=== PATIENT | female | born 1960 | race Caucasian/White ===

== ENCOUNTER → 2017-11-02 | Outpatient (CLI) | payer OTHER | END | disposition home or self-care (01) | LOC: MAMMO 09:24 | DX: N63.20 Unspecified lump in the left breast, unspecified quadrant (principal); Z85.3 Personal history of malignant neoplasm of breast | CPT/HCPCS: 76641; 77066 ==

== ENCOUNTER → 2017-11-19 | Outpatient (CLI) | payer OTHER ==
[~2017-11-19] MED LIST: LIDOCAINE 2%/EPI 1:100,000 20 ML VIAL. IJ
[2017-11-19] MEDS: LIDOCAINE WITH 8.4% SOD BICARB 3 ML DISP.SYRIN. INJ ×2 (08:45→09:57)
[2017-11-19] MEDS: LIDOCAINE 2%/EPI 1:100,000 20 ML VIAL. IJ (08:45)
== END | disposition home or self-care (01) ==
LOC: MAMMO 07:54
DX: N63.11 Unspecified lump in the right breast, upper outer quadrant (principal)
CPT/HCPCS: 19081; 19083; 19085; 76942; 77022; 77065; C1713; J3490

== ENCOUNTER → 2018-01-25 | Day surgery (SDC) | payer OTHER ==
[~2018-01-25] MED LIST changes: -LIDOCAINE 2%/EPI 1:100,000 20 ML VIAL. IJ; +PROPOFOL 20 ML IV
[2018-01-25] MEDS: IV RINGERS,LACTATED 1000ML 1,000 ML IV (15:20)
== END | disposition home or self-care (01) ==
LOC: ENDOS 14:54
DX: Z12.11 Encounter for screening for malignant neoplasm of colon (principal); D12.4 Benign neoplasm of descending colon; K57.30 Diverticulosis of large intestine without perforation or abscess without bleeding; K64.0 First degree hemorrhoids; Z80.0 Family history of malignant neoplasm of digestive organs; I10 Essential (primary) hypertension; Z85.3 Personal history of malignant neoplasm of breast; Z87.891 Personal history of nicotine dependence; Z72.89 Other problems related to lifestyle; Z90.710 Acquired absence of both cervix and uterus
CPT/HCPCS: 45380; 45385; 88305; J2704

== ENCOUNTER 2018-02-04 08:28 | Outpatient (CLI) | payer OTHER ==
[2018-02-04 09:11] LABS: ADD MAN DIFF? NO
[2018-02-04 09:16] LABS: BASO # 0.1 x10^3/uL (0.0-0.2); BASO % 1 % (0-3); EOS # 0.3 x10^3/uL (0.0-0.7); EOS % 4 % (0-3); HEMATOCRIT 42.1 % (36.0-47.0); HEMOGLOBIN 14.3 g/dL (12.0-15.5); LYMPH # 2.7 x10^3/uL (1.0-4.8); LYMPH % 34 % (24-48); MEAN CORPUSCULAR HEMOGLOBIN 32 pg (25-35); MEAN CORPUSCULAR HGB CONC 34 g/dL (31-37); MEAN CORPUSCULAR VOLUME 96 fL (79-100); MONO # 1.1 x10^3/uL (0.0-1.1); MONO % 13 % (0-9); NEUT # 3.9 x10^3uL (1.8-7.7); NEUT % 48 % (31-73); PLATELET COUNT 333 x10^3/uL (140-400); RED CELL DISTRIBUTION WIDTH 13.6 % (11.5-14.5); WHITE BLOOD COUNT 8.1 x10^3/uL (4.0-11.0)
[2018-02-04] MEDS ORDERED: fentaNYL PF VIAL 100 MCG/2 ML VIAL (09:17)
[2018-02-04] MEDS ORDERED: MIDAZOLAM HCL/PF 5 MG/5 ML VIAL. (09:17)
[2018-02-04 09:26] LABS: INR 1.1 (0.8-1.1); PARTIAL THROMBOPLASTIN TIME 29 SEC (24-38); PROTHROMBIN TIME PATIENT 13.2 SEC (11.7-14.0)
[2018-02-04] MEDS ORDERED: LIDOCAINE 2%/EPI 1:100,000 20 ML VIAL. (09:38)
[2018-02-04] MEDS: MIDAZOLAM HCL/PF 5 MG/5 ML VIAL. IV (10:30)
[2018-02-04] MEDS: LIDOCAINE 2%/EPI 1:100,000 20 ML VIAL. IJ (10:31)
[2018-02-04] MEDS: fentaNYL PF VIAL 100 MCG/2 ML VIAL IV (10:31)
== END 2018-02-04 11:50 | disposition home or self-care (01) ==
LOC: INTRAD 08:28
DX: Z45.2 Encounter for adjustment and management of vascular access device (principal); C50.912 Malignant neoplasm of unspecified site of left female breast; Z88.6 Allergy status to analgesic agent; Z86.73 Personal history of transient ischemic attack (TIA), and cerebral infarction without residual deficits; I10 Essential (primary) hypertension; K21.9 Gastro-esophageal reflux disease without esophagitis; Z90.13 Acquired absence of bilateral breasts and nipples; Z90.710 Acquired absence of both cervix and uterus; M19.012 Primary osteoarthritis, left shoulder; F32.9 Major depressive disorder, single episode, unspecified; F41.9 Anxiety disorder, unspecified; Z72.89 Other problems related to lifestyle; F17.200 Nicotine dependence, unspecified, uncomplicated; K08.409 Partial loss of teeth, unspecified cause, unspecified class; Z80.3 Family history of malignant neoplasm of breast; Z79.01 Long term (current) use of anticoagulants
CPT/HCPCS: 36415; 36561; 76937; 77001; 85025; 85610; 85730; 99152; 99153; C1751; C1769; C1892; J0690; J2250; J3010; J3490

== ENCOUNTER → 2018-02-08 | Outpatient (CLI) | payer OTHER | END | disposition home or self-care (01) | LOC: US 07:10 | DX: C50.412 Malignant neoplasm of upper-outer quadrant of left female breast (principal); N28.1 Cyst of kidney, acquired; K82.4 Cholesterolosis of gallbladder; I10 Essential (primary) hypertension; J44.1 Chronic obstructive pulmonary disease with (acute) exacerbation; K21.9 Gastro-esophageal reflux disease without esophagitis | CPT/HCPCS: 76700 ==

== ENCOUNTER → 2018-02-08 | Outpatient (CLI) | payer OTHER | END | disposition home or self-care (01) | LOC: ECHO 07:07 | DX: C50.412 Malignant neoplasm of upper-outer quadrant of left female breast (principal); Z51.11 Encounter for antineoplastic chemotherapy (principal); I10 Essential (primary) hypertension; J44.1 Chronic obstructive pulmonary disease with (acute) exacerbation; K21.9 Gastro-esophageal reflux disease without esophagitis; Z17.1 Estrogen receptor negative status [ER-]; Z90.13 Acquired absence of bilateral breasts and nipples | CPT/HCPCS: 93306 ==

== ENCOUNTER 2018-05-23 19:28 | Inpatient (IN) | payer OTHER ==
[~2018-05-23] VITALS: Ht 152.4 cm; Wt 54.5 kg
[~2018-05-23 19:28] MED LIST changes: +FAMO20TA80 PO; +HYDR2TAB PO; +LISI1TAB5 PO; -PROPOFOL 20 ML IV; +RANI150T21 PO; +SULF1TAB24 PO
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
[2018-05-23 21:42] LABS: BILIRUBIN,URINE NEGATIVE (NEG); CLARITY,URINE CLEAR; COLOR,URINE YELLOW; NITRITE,URINE NEGATIVE (NEG); PROTEIN,URINE NEGATIVE (NEG-TRACE); UROBILINOGEN,URINE 0.2 mg/dL (0.2 mg/dL)
[2018-05-23] MEDS ORDERED: IV NORMAL SALINE 1000ML BAG 1,000 ML IV SCH (21:45)
[2018-05-23 21:52] LABS: BACTERIA,URINE FEW /HPF (0-FEW); HYALINE CASTS, URINE MANY /HPF; RBC,URINE OCC /HPF (0-2); SQUAMOUS EPITHELIAL CELL,UR FEW /LPF
[2018-05-23 22:13] LABS: FECAL OB PT NEGATIVE (NEG)
[2018-05-23 22:34] LABS: BASO % 1 % (0-3); EOS # 0.1 x10^3/uL (0.0-0.7); EOS % 1 % (0-3); HEMATOCRIT 34.7 % (36.0-47.0); HEMOGLOBIN 12.4 g/dL (12.0-15.5); LYMPH # 0.9 x10^3/uL (1.0-4.8); LYMPH % 15 % (24-48); MEAN CORPUSCULAR HEMOGLOBIN 35 pg (25-35); MEAN CORPUSCULAR HGB CONC 36 g/dL (31-37); MEAN CORPUSCULAR VOLUME 98 fL (79-100); MONO # 0.3 x10^3/uL (0.0-1.1); MONO % 5 % (0-9); NEUT # 4.7 x10^3uL (1.8-7.7); NEUT % 78 % (31-73); PLATELET COUNT 341 x10^3/uL (140-400); RED BLOOD COUNT 3.55 x10^6/uL (3.50-5.40); RED CELL DISTRIBUTION WIDTH 14.3 % (11.5-14.5); WHITE BLOOD COUNT 6.1 x10^3/uL (4.0-11.0)
[2018-05-23 22:41] LABS: PROTHROMBIN TIME PATIENT 12.8 SEC (11.7-14.0)
[2018-05-23 22:43] LABS: CALCIUM 8.7 mg/dL (8.5-10.1); CREATININE 3.7 mg/dL (0.6-1.0); GFR 12.5; POTASSIUM 3.2 mmol/L (3.5-5.1)
[2018-05-23 22:50] LABS: ALBUMIN 3.5 g/dL (3.4-5.0); ALBUMIN/GLOBULIN RATIO 1.1 (1.0-1.7); TOTAL BILIRUBIN 0.2 mg/dL (0.2-1.0); TOTAL PROTEIN 6.8 g/dL (6.4-8.2)
[2018-05-23] MEDS ORDERED: FAMOTIDINE 20 MG/2 ML VIAL IVP ONE (23:00)
[2018-05-23] MEDS ORDERED: IV NORMAL SALINE 1000ML BAG 1,000 ML IV ONE (23:15)
[2018-05-23] MEDS ORDERED: ONDANSETRON PF 4 MG/2 ML VIAL. IV PRN (23:15)
[2018-05-23] MEDS: MORPHINE SULFATE 2 MG/ML VIAL. IV PRN (23:36)
[2018-05-24 00:38] VITALS: BP 112/55
[2018-05-24] MEDS ORDERED: DRON5CAP2 PO (00:52)
[2018-05-24] MEDS ORDERED: ONDA8TAB14 PO (00:52)
[2018-05-24] MEDS ORDERED: LISI1TAB5 PO (00:52)
[2018-05-24] MEDS ORDERED: PROC10TA2 PO (00:52)
[2018-05-24] MEDS ORDERED: TRAZ-85 PO (00:52)
[2018-05-24] MEDS ORDERED: TRAM50TA PO (00:52)
[2018-05-24] MEDS ORDERED: DIPH25CA58 PO (00:52)
[2018-05-24] MEDS: MORPHINE SULFATE 2 MG/ML VIAL. IV PRN ×3 (02:33→07:28)
[2018-05-24 03:01] VITALS: BP 91/42
[2018-05-24 07:20] VITALS: BP 119/87
[2018-05-24] MEDS ORDERED: diphenhydrAMINE HCL 25 MG CAPSULE PO PRN (07:45)
[2018-05-24] MEDS: FAMOTIDINE 20 MG TABLET. PO SCH (08:31)
--- NOTE | 2018-05-24 08:40 | PDOC ---
Provider Note Provider Note [phone] [id number] SUNITA SOTO MD May 24, 2018 08:40
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
[2018-05-24] MEDS: ONDANSETRON ODT 4 MG TAB.RAPDIS. PO PRN ×2 (08:47→18:12)
[2018-05-24] MEDS: traMADol 50 MG TABLET PO PRN ×3 (08:49→21:25)
[2018-05-24] MEDS: POTASSIUM CL 20MEQ D5-0.9%NACL 1,000 ML IV SCH ×3 (08:51→23:05)
[2018-05-24] MEDS ORDERED: hydroCHLOROthiazide 12.5 MG CAPSULE PO SCH (09:00)
[2018-05-24] MEDS ORDERED: LISINOPRIL 20 MG TABLET PO SCH (09:00)
--- NOTE | 2018-05-24 09:14 | HP ---
ADMIT DATE: 05/23/2018 CHIEF COMPLAINT: Nausea, vomiting, weakness. HISTORY OF PRESENT ILLNESS: A 57-year-old white female who has been seen by me for hypertension and has been on chemotherapy per the direction of Dr. Suzie Uriostegui since December of this year. She recently developed nausea and vomiting, 1 day of bloody diarrhea but the bloody diarrhea has since stopped. The ER evaluation showed acute renal failure as her baseline creatinine was around 1. I last saw the patient about 2 months ago at which time her blood pressure was too low and her lisinopril was stopped, but she has since resumed it and she is not completely sure why, but was told "to resume it." PAST MEDICAL HISTORY: Bilateral mastectomies. ALLERGIES: SHE IS ALLERGIC TO CODEINE AND HYDROCODONE, SHE IS A RECOVERING DRUG ADDICT. NO OTHER SERIOUS MEDICAL PROBLEMS. MEDICATIONS: She takes only Pepcid as a regular medication. FAMILY HISTORY: Unremarkable. SOCIAL HISTORY: Nonsmoker, nondrinker. REVIEW OF SYSTEMS: No other complaints. OBJECTIVE: ENT: Mucosa mildly dry, otherwise unremarkable. She has alopecia from chemotherapy. NECK: No carotid bruits, nodes or masses. LUNGS: Clear. CARDIOVASCULAR: Regular rate. No murmur. ABDOMEN: Soft, benign and nontender. BACK: No flank tenderness. EXTREMITIES: Decreased pedal pulses and skin turgor. No joint or skin lesions or neurologic findings. ASSESSMENT: Acute renal failure, likely secondary to gastrointestinal fluid loss from chemotherapy side effects. Overtreated hypertension with lisinopril may be a component to this as well. PLAN: We will again hold lisinopril, continue isotonic fluid resuscitation and follow renal function accordingly to assess recovery. SUNITA SOTO MD DR: AVIS/kinjal JOB#: [id number] / [id number]
[2018-05-24 14:50] VITALS: BP 101/46
[2018-05-24] MEDS ORDERED: FAMOTIDINE 20 MG TABLET. PO SCH (17:45)
[2018-05-24] MEDS ORDERED: FAMOTIDINE 20 MG TABLET. PO ONE (18:15)
[2018-05-24 19:00] VITALS: BP 140/64
[2018-05-24 21:22] LABS: CALCIUM 8.3 mg/dL (8.5-10.1); CREATININE 0.7 mg/dL (0.6-1.0); GFR 85.6; POTASSIUM 3.8 mmol/L (3.5-5.1)
[2018-05-24 23:00] VITALS: BP 118/61
[2018-05-25 03:20] VITALS: BP 136/75
[2018-05-25] MEDS: traMADol 50 MG TABLET PO PRN (03:49)
[2018-05-25] MEDS: POTASSIUM CL 20MEQ D5-0.9%NACL 1,000 ML IV SCH (03:51)
[2018-05-25 07:00] VITALS: BP 139/75
[2018-05-25 07:00] LABS: CALCIUM 8.2 mg/dL (8.5-10.1); CREATININE 0.6 mg/dL (0.6-1.0); GFR 102.3; POTASSIUM 3.6 mmol/L (3.5-5.1)
--- NOTE | 2018-05-25 08:10 | DISCH ---
DISCHARGE INSTRUCTIONS Condition on Discharge Condition on Discharge: Stable Activity After Discharge Activity Instructions for Disc: No restrictions, Bedrest today Lifting Instructions after Dis: No heavy lifting Driving Instructions after Dis: Do not drive Weight Bearing Status after Di: As tolerated Diet after Discharge Diet after Discharge: No Added Salt, Regular Wound Incision Care Wound/Incision Care: Keep wound/cast CDI Follow-Up Follow up with: dr robinson Blandon d Treatment/Equipment after DC Adaptive Equipment Issued: None SUNITA SOTO MD May 25, 2018 08:10
--- NOTE | 2018-05-25 08:10 | PDOC ---
Provider Note Provider Note [id number] SUNITA SOTO MD May 25, 2018 08:10
--- NOTE | 2018-05-25 08:28 | DS ---
DATE OF DISCHARGE: 05/25/2018 HOSPITAL SUMMARY: A 57-year-old white female came in with persistent nausea and vomiting for several days while undergoing chemotherapy for breast cancer. She had been taken off lisinopril HCT 3 months ago for hypertension due to lack of need, but had been recently taking it again in error. BUN was 55, creatinine 3.7 on admission and these came down to normal within 24 hours and remained so. Vital signs are good. Blood pressure is not high and she is eating and drinking well and comfortable to be discharged and followed as an outpatient at this point. FINAL DIAGNOSES: 1. Acute renal failure, resolved, likely secondary to vasomotor nephropathy. 2. Chemotherapy-induced nausea and vomiting. OPERATIONS, PROCEDURES, COMPLICATIONS: None. CONSULTATIONS: Dr. Suzie Uriostegui. DISPOSITION: She will remain off lisinopril HCT, to follow up in the office in 2 days. We will inject her left shoulder regarding arthritis at that time. FOLLOWUP: Regular follow up with her Oncology appointments, vigorous fluid intake. PROGNOSIS: Guarded. SUNITA SOTO MD DR: AVIS/kinjal JOB#: [id number] / [id number]
--- NOTE | 2018-05-25 08:38 | PDOC ---
SUBJECTIVE Subjective S: Feeling much better, renal function back to normal, would like to go home, she did have one bowel movement last night but it is forming, stool studies not resulted at this time O: Physical exam: Gen.: Thin, bald, resting in bed Lungs: Breathing comfortably with no evidence of respiratory distress Psychiatric: Pleasant mood and affect Labs: Creatinine 0.6 Assessment and Plan: She is a 57-year-old female with recurrent breast cancer recently noted October 2017 triple negative early stage on adjuvant chemotherapy with weekly paclitaxel due for her seventh week of 12 on , this is currently being held. Admitted with nausea vomiting diarrhea and acute renal failure likely secondary to volume depletion. Rapid improvement with volume and stopping lisinopril. Diarrhea: No pain, stools forming, improving, suspect due to chemotherapy, stool studies not resulted at this time but low suspicion for infectious diarrhea due to her improvement Nausea and vomiting: May use antiemetics as needed Acute renal failure: Resolved with hydration, will continue to hold lisinopril Breast cancer: Chemotherapy this week has been canceled though she will likely resume with week 8 of paclitaxel next week and follow-up with nurse practitioner Ms Walter as I will be out Disposition: Likely today Thank you kindly for this consultation, and please do not hesitate to call with further questions. OBJECTIVE Vital Signs Vital Signs Date Time Temp Pulse Resp B/P (MAP) Pulse Ox O2 Delivery O2 Flow Rate FiO2 05/25/18 07:00 98.1 71 20 139/75 (96) 94 Room Air 98.1 05/25/18 03:20 97.9 74 20 136/75 (95) 94 Room Air 97.9 05/24/18 23:00 98.1 73 18 118/61 (80) 96 Room Air 98.1 05/24/18 19:00 98.4 78 16 140/64 (89) 95 Room Air 98.4 05/24/18 15:53 Room Air 05/24/18 14:53 Room Air 05/24/18 14:50 98.1 77 17 101/46 (64) 96 Room Air 98.1 I & O Intake and Output 05/25/18 07:00 Intake Total 1980 ml Output Total 4 ml Balance 1976 ml Intake Oral 1980 ml Output Urine Total 4 ml # Bowel Movements 1 COMMENT Lab Laboratory Tests Test 05/24/18 21:00 05/25/18 06:15 Sodium Level 141 mmol/L (136-145) 141 mmol/L (136-145) Potassium Level 3.8 mmol/L (3.5-5.1) 3.6 mmol/L (3.5-5.1) Chloride Level 107 mmol/L (98-107) 106 mmol/L (98-107) Carbon Dioxide Level 30 mmol/L (21-32) 30 mmol/L (21-32) Anion Gap 4 (6-14) 5 (6-14) Blood Urea Nitrogen 20 mg/dL (7-20) 12 mg/dL (7-20) Creatinine 0.7 mg/dL (0.6-1.0) 0.6 mg/dL (0.6-1.0) Estimated GFR (Cockcroft-Gault) 85.6 102.3 Glucose Level 97 mg/dL (70-99) 103 mg/dL (70-99) Calcium Level 8.3 mg/dL (8.5-10.1) 8.2 mg/dL (8.5-10.1) Nutrition Consultation Dietary Evaluation: Recommendations by RD: Increase Calorie Intake, Protein supplementation Comments: diet changed to renal - monitor labs offer nepro supplements prn Expected Outcomes/Goals: to meet > 75% est nutr needs Malnutrition Findings: Food and Nutrition Intake (Mod: <75% est energy req 7days Weight Status: Appropriate GABRIELA BIRD MD May 25, 2018 08:38
[2018-05-25] MEDS: FAMOTIDINE 20 MG TABLET. PO SCH (09:00)
[2018-05-25] MEDS ORDERED: FAMOTIDINE 20 MG TABLET. PO SCH (09:00)
== END 2018-05-25 10:44 | disposition home or self-care (01) | DRG 640 ==
LOC: ER 19:28 → 5 SOUTH 23:05
PROVIDERS: ADMIT Family Medicine; ATTEND Family Medicine
DX: E87.6 Hypokalemia (principal); N17.0 Acute kidney failure with tubular necrosis; I10 Essential (primary) hypertension; C50.919 Malignant neoplasm of unspecified site of unspecified female breast; T45.1X5A Adverse effect of antineoplastic and immunosuppressive drugs, initial encounter; R11.2 Nausea with vomiting, unspecified; R19.7 Diarrhea, unspecified; Z17.1 Estrogen receptor negative status [ER-]; Z90.13 Acquired absence of bilateral breasts and nipples; Z88.6 Allergy status to analgesic agent; Z88.8 Allergy status to other drugs, medicaments and biological substances; Z90.710 Acquired absence of both cervix and uterus; Z80.0 Family history of malignant neoplasm of digestive organs; Z80.1 Family history of malignant neoplasm of trachea, bronchus and lung
CPT/HCPCS: 36415; 80048; 80053; 81001; 82274; 83690; 85025; 85610; 85730; 87045; 87086; 87186; 87205; 96361; 96374; J2270; J2405; J3490; J7030; Q0162; Q0163; 99285-25

== ENCOUNTER 2018-07-04 08:35 | Outpatient (CLI) | payer OTHER ==
[~2018-07-04] VITALS: Ht 152.4 cm; Wt 53.5 kg
[~2018-07-04 08:35] MED LIST changes: +DIPH25CA58 PO; +DRON5CAP2 PO; +ONDA8TAB14 PO; +PROC10TA2 PO; +TRAM50TA PO; +TRAZ-85 PO
[2018-07-04 09:09] LABS: BASO # 0.1 x10^3/uL (0.0-0.2); BASO % 1 % (0-3); EOS # 0.1 x10^3/uL (0.0-0.7); EOS % 1 % (0-3); HEMATOCRIT 42.4 % (36.0-47.0); HEMOGLOBIN 14.9 g/dL (12.0-15.5); LYMPH # 1.2 x10^3/uL (1.0-4.8); LYMPH % 16 % (24-48); MEAN CORPUSCULAR HEMOGLOBIN 34 pg (25-35); MEAN CORPUSCULAR HGB CONC 35 g/dL (31-37); MEAN CORPUSCULAR VOLUME 95 fL (79-100); MONO # 0.6 x10^3/uL (0.0-1.1); MONO % 8 % (0-9); NEUT # 5.4 x10^3uL (1.8-7.7); NEUT % 74 % (31-73); PLATELET COUNT 305 x10^3/uL (140-400); RED BLOOD COUNT 4.45 x10^6/uL (3.50-5.40); RED CELL DISTRIBUTION WIDTH 13.9 % (11.5-14.5); WHITE BLOOD COUNT 7.3 x10^3/uL (4.0-11.0)
[2018-07-04 09:21] VITALS: BP 120/71
[2018-07-04 09:23] LABS: PROTHROMBIN TIME PATIENT 12.3 SEC (11.7-14.0)
[2018-07-04] MEDS ORDERED: LIDOCAINE 1%/EPI 1:100,000 20 ML VIAL. ONE (09:46)
[2018-07-04] MEDS ORDERED: LIDOCAINE 1%/EPI 1:100,000 20 ML VIAL. IJ ONE (10:15)
[2018-07-04 10:30] VITALS: BP 119/57
[2018-07-04 10:45] VITALS: BP 140/60
--- NOTE | 2018-07-04 14:58 | RAD ---
Removal of right internal jugular port 07/04/2018 Indication: No longer requires chemotherapy access Discussion: The risks and benefits of the procedure were discussed the patient. Informed consent was obtained. A timeout procedure was performed. The right chest prepped and draped using sterile barrier technique. 1% lidocaine was administered for local anesthesia. A small incision was made overlying the port reservoir. The reservoir and catheter removed intact. This was confirmed fluoroscopically. The wound was closed in layers using 4-0 Vicryl suture. Sterile dressings were applied. No immediate complications were identified. Total fluoroscopy time: 0.1 minutes. Dose area product: [id number] Anesthesia: Local only Removal of right internal jugular [employer]
== END 2018-07-04 10:45 | disposition home or self-care (01) ==
LOC: INTRAD 08:35
PROVIDERS: ATTEND Internal Medicine Hematology & Oncology
DX: Z45.2 Encounter for adjustment and management of vascular access device (principal); C50.412 Malignant neoplasm of upper-outer quadrant of left female breast; Z17.1 Estrogen receptor negative status [ER-]; Z88.5 Allergy status to narcotic agent; Z79.01 Long term (current) use of anticoagulants; Z79.899 Other long term (current) drug therapy
CPT/HCPCS: 36415; 36590; 77001; 85025; 85610; J3490